=== PATIENT | female | born 1985 | race Hispanic/Latino ===

== ENCOUNTER 2019-02-09 01:32 | Emergency (ER) | payer SELFPAY ==
[~2019-02-09] VITALS: Ht 160 cm; Wt 64.4 kg
--- OUTSIDE RECORDS SUMMARY | 2019-02-09 01:35 | XMS REPORT ---
Author Author [facility] Address Unknown Phone Unavailable Care Team Providers Care Button Bradder Name Role Phone Unavailable Unavailable Problems This patient has no known problems. Allergies, Adverse Reactions, Alerts This patient has no known allergies or adverse reactions. Medications This patient has no known medications.
[2019-02-09] MEDS ORDERED: ALBUTEROL SULF 0.083% NEB SOLN 3 ML NEB NEB STA (01:48)
[2019-02-09] MEDS ORDERED: PROAIR HFA INH8.5 GM INH (01:53)
[2019-02-09] MEDS ORDERED: MEDROL4 MG PO (01:54)
[2019-02-09] MEDS ORDERED: CETIRIZINE HCL10 MG PO (01:55)
[2019-02-09] MEDS ORDERED: FLUTICASONE PRO16 GM NS (01:57)
[2019-02-09] MEDS ORDERED: DEXAMETHASONE SOD PHOS 10 MG/1 ML VIAL IM ONE (02:00)
[2019-02-09 02:25] VITALS: BP 123/79
== END 2019-02-09 02:22 | disposition home or self-care (01) ==
LOC: FSED 01:32
DX: R05 Cough (principal); J98.01 Acute bronchospasm; K21.9 Gastro-esophageal reflux disease without esophagitis; J30.2 Other seasonal allergic rhinitis; J30.1 Allergic rhinitis due to pollen
CPT/HCPCS: 96372; 99282